=== PATIENT | female | born 1945 | race Caucasian/White ===

== ENCOUNTER 2020-11-02 15:47 | Emergency (ER) | payer MEDICARE ==
--- NOTE | 2020-11-02 17:57 | CT ---
CT of the cervical spine: 11/02/2020 COMPARISON: None HISTORY: Pain TECHNIQUE: Axial CT imaging at 1.25 mm intervals through the cervical spine without contrast. Coronal and sagittal reformatted imaging obtained. FINDINGS: Evaluation for central canal and/or neural foraminal stenosis is limited on routine CT exam ination. The craniocervical junction, the atlantoaxial interspace, the cervicothoracic junction, the occipital condyles, the dens, and the C1-2 articulation demonstrate no acute findings. The visualized lung apices appear unremarkable. C2-3: No osseous cause of significant central canal or neural foraminal stenosis. C3-4: Minimal disc bulge and left uncovertebral osteophyte formation with no osseous cause of signifi cant central canal or neural foraminal stenosis. C4-5: Minimal disc bulge and minimal anterolisthesis. Mild disc space narrowing and mild anterior ost eophyte formation. Mild uncovertebral osteophyte formation on the left. No osseous cause of significant central canal or neural foraminal stenosis. C5-6: Mild bilateral facet hypertrophy with disc space narrowing and mild anterior osteophyte formati on. No osseous cause of significant central canal or neural foraminal stenosis. C6-7: No osseous cause of significant central canal or neural foraminal stenosis. C7-T1: No osseous cause of significant central canal or neural foraminal stenosis. No worrisome lytic or blastic bone lesion. No prevertebral soft tissue swelling. No acute fracture or dislocation. IMPRESSION: No acute osseous abnormality.
--- NOTE | 2020-11-02 18:07 | CT ---
Head CT without contrast 11/02/2020: Comparison: None HISTORY: Injury, trauma, on blood thinners TECHNIQUE: Axial CT imaging at 5 mm intervals from vertex through skull base without contrast. Mc l and sagittal reformatted imaging obtained. FINDINGS: There is partial opacification of the maxillary sinus on the right posteriorly. There is na ibrahima septal perforation anteriorly. The visualized paranasal sinuses and mastoid air cells appear grossly unremarkable otherwise. No displaced calvarial fracture. There is mild posterior superior scalp swelling on the right near the vertex. No intracranial hemorrh age, midline shift, or mass effect. IMPRESSION: Scalp swelling with no intracranial hemorrhage or displaced calvarial fracture.
--- NOTE | 2020-11-02 18:28 | RAD ---
Frontal radiograph pelvis: 11/02/2020 COMPARISON: None HISTORY: Fall, trauma, pain FINDINGS: The femoral heads project normally over the respective acetabulum. There is no widening of the sacroiliac joints or the pubic symphysis. No displaced fracture or evidence of dislocation is seen. IMPRESSION: No acute fracture or evidence of dislocation within the pelvis.
== END 2020-11-02 19:40 | disposition home or self-care (01) ==
LOC: ERS 15:47
DX: S00.03XA Contusion of scalp, initial encounter (principal); M06.9 Rheumatoid arthritis, unspecified; E11.9 Type 2 diabetes mellitus without complications; W01.0XXA Fall on same level from slipping, tripping and stumbling without subsequent striking against object, initial encounter
CPT/HCPCS: 70450; 72125; 72170